=== PATIENT | female | born 1960 | race Caucasian/White ===

== ENCOUNTER 2019-09-03 06:08 | Emergency (ER) | payer MEDICAID ==
[~2019-09-03] VITALS: Ht 165.1 cm; Wt 73.0 kg
[2019-09-03] MEDS ORDERED: KETOROLAC 60MG/2ML VIAL IM ONE (07:15)
[2019-09-03] MEDS ORDERED: DEXAMETHASONE 4MG/ML 1ML VIAL IM ONE (07:15)
[2019-09-03] MEDS ORDERED: ACETAMINOPHEN 325MG TABLET PO ONE (07:15)
[2019-09-03 07:45] VITALS: BP 125/86
== END 2019-09-03 07:45 | disposition home or self-care (01) ==
LOC: ER 06:08
DX: M54.5 Low back pain (principal)
CPT/HCPCS: 96372; 99284; J1100; J1885